=== PATIENT | male | born 1970 | race Caucasian/White ===

== ENCOUNTER 2019-06-18 14:22 | Emergency (ER) | payer SELFPAY ==
[~2019-06-18] VITALS: Ht 180.3 cm; Wt 75.0 kg
[2019-06-18 14:27] VITALS: BP 90/60
--- NOTE | 2019-06-18 14:31 | NUR ---
SYLVESTER RN: PT BIB [facility] FOR ETOH. VS STABLE. PT IS NOT ABLE TO WALK. AT BEDSIDE. PATIENT AND SMELL OF ETOH. CALL LIGHT IN PLACE. WILL CONTINUE TO MONITOR WHILE PRIMARY RN IS ON BREAK.
--- NOTE | 2019-06-18 15:20 | NUR ---
PT AMBUALTED STEADY TO EXIT. Patient/Caregiver given discharge instructions and they have confirmed that they understand the instructions. Patient ambulatory with steady gait.
[2019-06-18] MEDS ORDERED: SODIUM CHLORIDE 0.9% 1,000ML IVBOLUS ONE (15:30)
[2019-06-18] MEDS ORDERED: THIAMINE 100MG TABLET PO ONE (15:30)
[2019-06-18] MEDS ORDERED: SODIUM CHLORIDE FLUSH 10ML SYR IVF ONE (15:30)
== END 2019-06-18 15:24 | disposition home or self-care (01) ==
LOC: ED 15:17
DX: F10.120 Alcohol abuse with intoxication, uncomplicated (principal)
CPT/HCPCS: 99283